=== PATIENT | female | born 1990 | race Caucasian/White ===

== ENCOUNTER 2023-04-07 15:22 | Outpatient (RCR) | payer OTHER, SELFPAY ==
[2023-04-07 15:56] VITALS: BP 121/75; PULSE 92; RESP 18; TEMP 36.9; O2SAT 97
[2023-04-07] MEDS: RHO(D) IMMUNE GLOBULIN 1,500 UNIT SYRINGE 1500 UNIT IM (16:05)
--- NOTE | 2023-04-07 16:17 | PC.NURSE ---
1556: Pt. to [facility] amb per self. Seated in recliner. VSS. Denies questions regarding Rhophylac injection. Denies allergies. Pt. medicated with Rhophylac 1500IU IM to right dorsal gluteal. No bleeding to site. Bandaid placed prophylactically. Pt. tolerated with minimal c/o pain. Given water. Instructed need brief observation for s&s of adverse reaction. Pt. relays understanding. 1620: Pt. without changes. D/c'd amb. to home
== END 2023-04-10 23:59 | disposition home or self-care (01) ==
LOC: INF 15:22
PROVIDERS: Visit Provider Obstetrics & Gynecology
DX: O26.893 Other specified pregnancy related conditions, third trimester (principal); Z67.91 Unspecified blood type, Rh negative
CPT/HCPCS: 36415; 86850; 86900; 86901; 96372; J2790

== ENCOUNTER 2023-05-27 13:26 | Outpatient (OUT) | payer OTHER, SELFPAY ==
--- NOTE | 2023-05-27 13:29 | US_ITS ---
[address] [address] Patient Name: EVELIO TATE MRN: [id number] date: 1990 Sex: F Assigned Patient Location: US Current Patient Location: LAB Accession/Order Number: [id number] Exam Date: 05/27/2023 13:30 Report Date: 05/27/2023 21:51 At the request of: ALICIA UP Procedure: US OB growth EXAMINATION: US OB growth HISTORY: SIZE INCONSISTENT WITH DATES COMPARISON: No relevant comparison available. FINDINGS: #: 1.0 Presentation: CEPHALIC Heart Rate: 139.0 bpm Amniotic Fluid Volume: ; 10.3 cm Maximum Vertical Pocket: 2.6 cm cm 0.0 cm cm 3.7 cm cm 4.1 cm cm BIOMETRY: BPD: 8.8 cm cm; 35 weeks 3 days, 46% HC: 32.2 cm cm; 36 weeks 3 days, 32% AC: 31.7 cm cm; 35 weeks 4 days, 52% FL: 7.0 cm cm; 36 weeks 0 days, 49% EFW: 2766 g, 6 lbs. 2 oz., 48% FL/AC: 22.2 FL/BPD: 80.0 HC/AC: 1.0 GESTATIONAL AGE: BERNIE by EDC: 35 weeks 6 days Age by EDC: 06/25/2023 Ultrasound Age: 35 weeks 6 days BERNIE by US: 06/25/2023 US/US OB growth IMPRESSION: Normal interval growth Electronically authenticated by: JONY KIDD Date: 05/27/2023 21:51
== END 2023-05-27 13:27 | disposition home or self-care (01) ==
PROVIDERS: Visit Provider Physician Assistant
DX: Z34.93 Encounter for supervision of normal pregnancy, unspecified, third trimester (principal); O26.843 Uterine size-date discrepancy, third trimester; Z3A.35 35 weeks gestation of pregnancy
CPT/HCPCS: 76816; 87081

== ENCOUNTER 2023-05-27 20:03 | Outpatient (REF) | payer OTHER, SELFPAY | END 2023-05-27 20:04 | disposition home or self-care (01) | LOC: LAB 20:03 | PROVIDERS: Visit Provider Obstetrics & Gynecology | DX: Z34.93 Encounter for supervision of normal pregnancy, unspecified, third trimester (principal) | CPT/HCPCS: 87081 ==

== ENCOUNTER 2023-06-11 11:29 | Inpatient (IN) | payer OTHER, SELFPAY ==
[2023-06-11] VITALS (15 sets, daily range): BP systolic 113–141; BP diastolic 58–78; PULSE 66–100; RESP 16; TEMP 36.2–36.9
[2023-06-11] MEDS: 0.9 % SODIUM CHLORIDE 1,000 ML 1000 ML IV (13:21)
[2023-06-11 13:23] LABS: Hematocrit 35.9 % (36.0-48.0); Mean Corpuscular HGB Conc 33.4 g/dL (29.9-35.2); Mean Corpuscular Hemoglobin 30.1 pg (26.7-34.0); Mean Platelet Volume 9.4 fL (9.5-13.5); Platelet Count 235 10^3/uL (150-450); Red Blood Count 3.99 10^6/uL (4.20-5.40); Red Cell Distribution Width 13.2 % (11.0-15.0)
[2023-06-11] MEDS: AMPICILLIN SODIUM 2,000 MG in 0.9 % SODIUM CHLORIDE 100 ML 200 MG IV (13:24)
--- NOTE | 2023-06-11 14:02 | PM.OBPRCVD ---
Procedure Intrapartal events: None Induction method: none Delivery augmentation: rupture of membranes Delivery monitor: external FHT and external uterine Route of delivery: Episiotomy Description: none Laceration description: perineal - 2nd degree Delivery repair: Vicryl Estimated blood loss (mL): 250 Anesthesia type: None Disposition: floor Infant Delivery date: 06/11/23 Gender: female presentation: vertex Placental delivery description: Spontaneous cord description: 3 Vessels
[2023-06-11 14:07] LABS: Amphetamine Screen Urine NEGATIVE (NEGATIVE); Barbiturates Screen Urine NEGATIVE (NEGATIVE); Benzodiazepines Screen Urine NEGATIVE (NEGATIVE); Buprenorphine Screen Urine NEGATIVE (NEGATIVE); Cannabinoid Screen Urine NEGATIVE (NEGATIVE); Cocaine Screen Urine NEGATIVE (NEGATIVE); Methadone Screen Urine NEGATIVE (NEGATIVE); Methamphetamines Screen Urine NEGATIVE (NEGATIVE); Opiate Screen Urine NEGATIVE (NEGATIVE); Oxycodone Screen Urine NEGATIVE (NEGATIVE); Phencyclidine Screen Urine NEGATIVE (NEGATIVE); Tricyclic Antidepressant Urine NEGATIVE (NEGATIVE)
[2023-06-11] MEDS: LIDOCAINE HCL 1% 200 MG/20 ML MDV INJ (14:10)
[2023-06-11] MEDS: KETOROLAC TROMETHAMINE 30 MG/ML VIAL IVP (14:15)
[2023-06-11] MEDS: GLYCERIN/WITCH HAZEL PADS 1 PAD TOPICAL (16:22)
[2023-06-11] MEDS: BENZOCAINE/MENTHOL 85 GRAM SPRAY BOTTLE 1 APPLIC TOPICAL (16:23)
--- NOTE | 2023-06-11 19:03 | W.PC.ACHO ---
Registration Status: ADM IN Primary Language: Equ[place]inean Preferred Language: [place] Active Medications Generic Name Dose Route Start Last Admin Trade Name Thierno PRN Reason Stop Dose Admin Acetaminophen 650 mg 06/11/23 13:59 Acetaminophen 325 Mg Tablet PO Q6H PRN Mild Pain Al Hydroxide/Mg Hydroxide 2,400 mg 06/11/23 13:59 Magnesium Hydroxide 2,400 Mg/10 Ml Oral.Susp PO Q6H PRN Dyspepsia Benzocaine/Menthol 1 applic 06/11/23 13:59 06/11/23 16:23 Benzocaine/Menthol 85 Gram [place] Bottle TOPICAL 1 applic Q2H PRN Administration Pain Carboprost Tromethamine 250 mcg 06/11/23 12:53 Carboprost Tromethamine 250 Mcg/Ml 1 Ml Vial IM 06/13/23 12:54 Q15M PRN Bleeding Diphtheria/Pertussis/Tetanus Vacc 0.5 ml 06/13/23 09:00 Adacel Diph,Pertuss(Acell),Tet Vac/Pf 0.5 Ml Adult Syringe IM 06/13/23 09:01 .ONCE ONE Docusate Sodium 100 mg 06/12/23 09:00 Docusate Sodium 100 Mg Capsule PO BID RAMAN Ephedrine Sulfate 5 mg 06/11/23 13:01 Ephedrine Sulfate 50 Mg/Ml Vial IV 06/12/23 13:04 Q5M PRN Blood Pressure - Low Fentanyl Citrate 100 mcg 06/11/23 13:01 Fentanyl Citrate/Pf 100 Mcg/2 Ml Vial EPIDURAL 06/12/23 13:04 Q4H PRN Pain Sodium Chloride 1,000 mls @ 125 mls/hr 06/11/23 13:00 Sodium Chloride 0.9% 1,000 Ml IV .Q8H RAMAN Oxytocin/Sodium Chloride 20 units in 1,000 mls @ 125 mls/hr 06/12/23 12:57 Pitocin 20 Unit/1,000 Ml-Ns IV 06/12/23 20:56 ONCE ONE Protocol Ampicillin 1,000 mg/ Sodium 50 mls @ 100 mls/hr 06/11/23 17:00 Chloride IV Q4H RAMAN Ropivacaine/Sodium Chloride 400 mg in 200 mls @ 6 mls/hr 06/11/23 14:00 Naropin 0.2% 400 Mg/200 Ml Bag EPIDURAL 06/12/23 14:01 Q24H RAMAN Oxytocin 20 unit/ Sodium 1,002 mls @ 125 mls/hr 06/11/23 14:00 06/11/23 14:17 Chloride IV 06/11/23 21:59 1,000 mls/hr Q8H RAMAN 1,000 mls/hr Administration Ibuprofen 600 mg 06/11/23 13:59 Ibuprofen 600 Mg Tablet PO Q6H PRN Moderate Pain Lidocaine 5 ml 06/11/23 12:53 Lidocaine Viscous 2% 15 Ml Topical Solution TOPICAL ONCE PRN Pain Lidocaine 1 ml 06/11/23 12:53 06/11/23 14:10 Lidocaine Hcl 1% 200 Mg/20 Ml Mdv INJ 1 ml ONCE PRN Administration Pain Measles/Mumps/Rubella Vaccine Live 0.5 ml 06/13/23 09:00 Measles,Mumps,Rubella Vacc/Pf 0.5 Ml Vial SQ 06/13/23 09:01 .ONCE ONE Methylergonovine Maleate 0.2 mg 06/11/23 12:53 Methylergonovine Maleate 0.2 Mg/Ml Ampule IM 06/13/23 12:54 ONCE PRN Uterine Contractility/Contract Methylergonovine Maleate 0.2 mg 06/11/23 12:53 Methylergonovine Maleate 0.2 Mg Tablet PO 06/13/23 12:54 Q4H PRN Uterine Contractility/Contract Misoprostol 600 mcg 06/11/23 12:53 Misoprostol 100 Mcg Tablet PO 06/13/23 12:54 ONCE PRN Uterine Bleeding Misoprostol 800 mcg 06/11/23 12:53 Misoprostol 100 Mcg Tablet SL 06/13/23 12:54 ONCE PRN Uterine Bleeding Misoprostol 1,000 mcg 06/11/23 12:53 Misoprostol 100 Mcg Tablet [place] 06/13/23 12:54 ONCE PRN Uterine Bleeding Naloxone HCl 0.4 mg 06/11/23 13:01 Naloxone Hcl 0.4 Mg/Ml Vial IV 06/12/23 13:04 ONCE PRN Allergic Reaction Ondansetron HCl 4 mg 06/11/23 12:53 Ondansetron Pf 4 Mg/2 Ml Vial IV Q6H PRN Nausea And Vomiting Ondansetron HCl 4 mg 06/11/23 12:53 Ondansetron 4 Mg Rapdis Tablet SL Q6H PRN Nausea And Vomiting Senna 17.2 mg 06/11/23 20:00 Sennosides 8.6 Mg Tablet PO QHS PRN Constipation Simethicone 80 mg 06/11/23 13:59 Simethicone 80 Mg Tab.Chew PO QID PRN Abdominal Distention Temazepam 15 mg 06/11/23 20:00 Temazepam 15 Mg Capsule PO QHS PRN Sleep Witch Danii/Glycerin 1 pad 06/11/23 13:59 06/11/23 16:22 Glycerin/Witch Danii Pads TOPICAL 1 pad Q2H PRN Administration Pain Diet Category Date Time Status Regular Consistency Diet Diet 06/11/23 Dinner Active IV Insertion/Site Date of IV Line Insertion [ 06/11/23 left Hand] IV Insertion Time [left Hand] 13:15 Neurology Patient orientation (short person,place,time,situation list) Respiratory Lung sounds [Bilateral clear Throughout] Oxygen Delivery Method Room Air Oxygen Delivery Method Room Air Oxygen Delivery Method Room Air Bowels Bowel Pattern No Bowel Movement Renal Bladder Pattern Continent
[2023-06-11] MEDS: IBUPROFEN 600 MG TABLET PO (20:22)
[2023-06-12] MEDS: IBUPROFEN 600 MG TABLET PO ×4 (02:27→23:52)
[2023-06-12 06:12] LABS: Basophils Percent Auto 0.3 % (0.2-2.0); Eosinophils Absolute Auto 0.1 10^3/uL (0.0-0.7); Eosinophils Percent Auto 0.8 % (0.9-7.0); Hematocrit 33.6 % (36.0-48.0); Hemoglobin 11.1 g/dL (12.0-16.0); Immature Granulocytes Abs Auto 0.09 10^3/uL (0.00-0.03); Immature Granulocytes Pct Auto 0.8 % (0.0-0.5); Lymphocytes Absolute Auto 2.4 10^3/uL (1.2-3.8); Mean Corpuscular Hemoglobin 30.1 pg (26.7-34.0); Mean Corpuscular Volume 91.1 fL (81.0-99.0); Mean Platelet Volume 9.1 fL (9.5-13.5); Monocytes Absolute Auto 0.7 10^3/uL (0.3-0.8); Monocytes Percent Auto 6.4 % (1.7-12.0); Neutrophils Absolute Auto 7.5 10^3/uL (1.4-6.5); Neutrophils Percent Auto 69.7 % (43.0-75.0); Platelet Count 210 10^3/uL (150-450); Red Blood Count 3.69 10^6/uL (4.20-5.40); Red Cell Distribution Width 13.5 % (11.0-15.0); White Blood Count 10.8 10^3/uL (4.0-11.0)
--- NOTE | 2023-06-12 07:08 | W.PC.ACHO ---
Registration Status: ADM IN Primary Language: Turkmen Preferred Language: Turkmen Active Medications Generic Name Dose Route Start Last Admin Trade Name Thierno PRN Reason Stop Dose Admin Acetaminophen 650 mg 06/11/23 13:59 Acetaminophen 325 Mg Tablet PO Q6H PRN Mild Pain Al Hydroxide/Mg Hydroxide 2,400 mg 06/11/23 13:59 Magnesium Hydroxide 2,400 Mg/10 Ml Oral.Susp PO Q6H PRN Dyspepsia Benzocaine/Menthol 1 applic 06/11/23 13:59 06/11/23 16:23 Benzocaine/Menthol 85 Gram [place] Bottle TOPICAL 1 applic Q2H PRN Administration Pain Carboprost Tromethamine 250 mcg 06/11/23 12:53 Carboprost Tromethamine 250 Mcg/Ml 1 Ml Vial IM 06/13/23 12:54 Q15M PRN Bleeding Diphtheria/Pertussis/Tetanus Vacc 0.5 ml 06/13/23 09:00 Adacel Diph,Pertuss(Acell),Tet Vac/Pf 0.5 Ml Adult Syringe IM 06/13/23 09:01 .ONCE ONE Docusate Sodium 100 mg 06/12/23 09:00 Docusate Sodium 100 Mg Capsule PO BID RAMAN Ephedrine Sulfate 5 mg 06/11/23 13:01 Ephedrine Sulfate 50 Mg/Ml Vial IV 06/12/23 13:04 Q5M PRN Blood Pressure - Low Fentanyl Citrate 100 mcg 06/11/23 13:01 Fentanyl Citrate/Pf 100 Mcg/2 Ml Vial EPIDURAL 06/12/23 13:04 Q4H PRN Pain Sodium Chloride 1,000 mls @ 125 mls/hr 06/11/23 13:00 Sodium Chloride 0.9% 1,000 Ml IV .Q8H RAMAN Oxytocin/Sodium Chloride 20 units in 1,000 mls @ 125 mls/hr 06/12/23 12:57 Pitocin 20 Unit/1,000 Ml-Ns IV 06/12/23 20:56 ONCE ONE Protocol Ampicillin 1,000 mg/ Sodium 50 mls @ 100 mls/hr 06/11/23 17:00 Chloride IV Q4H RAMAN Ropivacaine/Sodium Chloride 400 mg in 200 mls @ 6 mls/hr 06/11/23 14:00 Naropin 0.2% 400 Mg/200 Ml Bag EPIDURAL 06/12/23 14:01 Q24H RAMAN Ibuprofen 600 mg 06/11/23 13:59 06/12/23 02:27 Ibuprofen 600 Mg Tablet PO 600 mg Q6H PRN Administration Moderate Pain Lidocaine 5 ml 06/11/23 12:53 Lidocaine Viscous 2% 15 Ml Topical Solution TOPICAL ONCE PRN Pain Lidocaine 1 ml 06/11/23 12:53 06/11/23 14:10 Lidocaine Hcl 1% 200 Mg/20 Ml Mdv INJ 1 ml ONCE PRN Administration Pain Measles/Mumps/Rubella Vaccine Live 0.5 ml 06/13/23 09:00 Measles,Mumps,Rubella Vacc/Pf 0.5 Ml Vial SQ 06/13/23 09:01 .ONCE ONE Methylergonovine Maleate 0.2 mg 06/11/23 12:53 Methylergonovine Maleate 0.2 Mg/Ml Ampule IM 06/13/23 12:54 ONCE PRN Uterine Contractility/Contract Methylergonovine Maleate 0.2 mg 06/11/23 12:53 Methylergonovine Maleate 0.2 Mg Tablet PO 06/13/23 12:54 Q4H PRN Uterine Contractility/Contract Misoprostol 600 mcg 06/11/23 12:53 Misoprostol 100 Mcg Tablet PO 06/13/23 12:54 ONCE PRN Uterine Bleeding Misoprostol 800 mcg 06/11/23 12:53 Misoprostol 100 Mcg Tablet SL 06/13/23 12:54 ONCE PRN Uterine Bleeding Misoprostol 1,000 mcg 06/11/23 12:53 Misoprostol 100 Mcg Tablet ID 06/13/23 12:54 ONCE PRN Uterine Bleeding Naloxone HCl 0.4 mg 06/11/23 13:01 Naloxone Hcl 0.4 Mg/Ml Vial IV 06/12/23 13:04 ONCE PRN Allergic Reaction Ondansetron HCl 4 mg 06/11/23 12:53 Ondansetron Pf 4 Mg/2 Ml Vial IV Q6H PRN Nausea And Vomiting Ondansetron HCl 4 mg 06/11/23 12:53 Ondansetron 4 Mg Rapdis Tablet SL Q6H PRN Nausea And Vomiting Senna 17.2 mg 06/11/23 20:00 Sennosides 8.6 Mg Tablet PO QHS PRN Constipation Simethicone 80 mg 06/11/23 13:59 Simethicone 80 Mg Tab.Chew PO QID PRN Abdominal Distention Temazepam 15 mg 06/11/23 20:00 Temazepam 15 Mg Capsule PO QHS PRN Sleep Witch Danii/Glycerin 1 pad 06/11/23 13:59 06/11/23 16:22 Glycerin/Witch Danii Pads TOPICAL 1 pad Q2H PRN Administration Pain Diet Category Date Time Status Regular Consistency Diet Diet 06/11/23 Dinner Active IV Insertion/Site Date of IV Line Insertion [ 06/11/23 left Hand] IV Insertion Time [left Hand] 13:15 Neurology Patient orientation (short person,place,time,situation list) Respiratory Lung sounds [Bilateral clear Throughout] Lung sounds [Bilateral clear Throughout] Oxygen Delivery Method Room Air Oxygen Delivery Method Room Air Oxygen Delivery Method Room Air Oxygen Delivery Method Room Air Bowels Bowel Pattern No Bowel Movement Renal Bladder Pattern Continent
--- NOTE | 2023-06-12 07:58 | PM.OBPN ---
OB - PN: Subj Subjective Patient comments: no complaints and pain well controlled status: doing well Exam Constitutional Vital Signs, click to edit/add: Last Vital Signs Temp 97.8 F 06/11/23 23:48 Pulse 66 06/11/23 23:48 Resp 16 06/11/23 15:46 BP 113/58 06/11/23 23:48 O2 Del Method Room Air 06/11/23 23:45 Documenting provider has reviewed patient's vital signs: yes Common normals: no apparent distress Respiratory Common normals: normal respiratory effort and clear to auscultation bilaterally Cardio Common normals: regular rate and regular rhythm GI Common normals: Normal to inspection, nondistended, normoactive bowel sounds present Extremity Common normals: no clubbing, cyanosis or edema and no calf tenderness Results Labs Labs: Short CBC 06/11/23 06/12/23 Range/Units 13:00 06:03 WBC 12.0 H 10.8 (4.0-11.0) 10^3/uL Hgb 12.0 11.1 L (12.0-16.0) g/dL Hct 35.9 L 33.6 L (36.0-48.0) % Plt Count 235 210 (150-450) 10^3/uL OB - PN: A/P Plan - Vaginal Delivery day: 1 Plan: routine care Time Spent with Patient Time: Total time spent is greater than 50% in coordination of care (as documented) at patient's floor/unit and/or counseling patient: Total time spent with greater than 50% in coordination of care (as documented) at patient's floor/unit and/or counseling patient: less than 15 minutes
[2023-06-12 08:26] VITALS: BP 119/69; PULSE 65
[2023-06-12 08:31] VITALS: BP 119/69; PULSE 65; RESP 16; TEMP 36.8
[2023-06-12] MEDS: DOCUSATE SODIUM 100 MG CAPSULE PO ×2 (10:21→20:41)
[2023-06-12] MEDS: RHO(D) IMMUNE GLOBULIN 1,500 UNIT SYRINGE 1500 UNIT IV (10:21)
--- NOTE | 2023-06-12 19:17 | W.PC.ACHO ---
Registration Status: ADM IN Primary Language: Panamanian Preferred Language: Panamanian Report received at 1900 from Lennox Glynn RN. Active Medications Generic Name Dose Route Start Last Admin Trade Name Freq PRN Reason Stop Dose Admin Acetaminophen 650 mg 06/11/23 13:59 Acetaminophen 325 Mg Tablet PO Q6H PRN Mild Pain Al Hydroxide/Mg Hydroxide 2,400 mg 06/11/23 13:59 Magnesium Hydroxide 2,400 Mg/10 Ml Oral.Susp PO Q6H PRN Dyspepsia Benzocaine/Menthol 1 applic 06/11/23 13:59 06/11/23 16:23 Benzocaine/Menthol 85 Gram [place] Bottle TOPICAL 1 applic Q2H PRN Administration Pain Carboprost Tromethamine 250 mcg 06/11/23 12:53 Carboprost Tromethamine 250 Mcg/Ml 1 Ml Vial IM 06/13/23 12:54 Q15M PRN Bleeding Diphtheria/Pertussis/Tetanus Vacc 0.5 ml 06/13/23 09:00 Adacel Diph,Pertuss(Acell),Tet Vac/Pf 0.5 Ml Adult Syringe IM 06/13/23 09:01 .ONCE ONE Docusate Sodium 100 mg 06/12/23 09:00 06/12/23 10:21 Docusate Sodium 100 Mg Capsule PO 100 mg BID RAMAN Administration Sodium Chloride 1,000 mls @ 125 mls/hr 06/11/23 13:00 Sodium Chloride 0.9% 1,000 Ml IV .Q8H RAMAN Oxytocin/Sodium Chloride 20 units in 1,000 mls @ 125 mls/hr 06/12/23 12:57 Pitocin 20 Unit/1,000 Ml-Ns IV 06/12/23 20:56 ONCE ONE Protocol Ampicillin 1,000 mg/ Sodium 50 mls @ 100 mls/hr 06/11/23 17:00 Chloride IV Q4H RAMAN Ibuprofen 600 mg 06/11/23 13:59 06/12/23 16:46 Ibuprofen 600 Mg Tablet PO 600 mg Q6H PRN Administration Moderate Pain Lidocaine 5 ml 06/11/23 12:53 Lidocaine Viscous 2% 15 Ml Topical Solution TOPICAL ONCE PRN Pain Lidocaine 1 ml 06/11/23 12:53 06/11/23 14:10 Lidocaine Hcl 1% 200 Mg/20 Ml Mdv INJ 1 ml ONCE PRN Administration Pain Measles/Mumps/Rubella Vaccine Live 0.5 ml 06/13/23 09:00 Measles,Mumps,Rubella Vacc/Pf 0.5 Ml Vial SQ 06/13/23 09:01 .ONCE ONE Methylergonovine Maleate 0.2 mg 06/11/23 12:53 Methylergonovine Maleate 0.2 Mg/Ml Ampule IM 06/13/23 12:54 ONCE PRN Uterine Contractility/Contract Methylergonovine Maleate 0.2 mg 06/11/23 12:53 Methylergonovine Maleate 0.2 Mg Tablet PO 06/13/23 12:54 Q4H PRN Uterine Contractility/Contract Misoprostol 600 mcg 06/11/23 12:53 Misoprostol 100 Mcg Tablet PO 06/13/23 12:54 ONCE PRN Uterine Bleeding Misoprostol 800 mcg 06/11/23 12:53 Misoprostol 100 Mcg Tablet SL 06/13/23 12:54 ONCE PRN Uterine Bleeding Misoprostol 1,000 mcg 06/11/23 12:53 Misoprostol 100 Mcg Tablet PA 06/13/23 12:54 ONCE PRN Uterine Bleeding Ondansetron HCl 4 mg 06/11/23 12:53 Ondansetron Pf 4 Mg/2 Ml Vial IV Q6H PRN Nausea And Vomiting Ondansetron HCl 4 mg 06/11/23 12:53 Ondansetron 4 Mg Rapdis Tablet SL Q6H PRN Nausea And Vomiting Senna 17.2 mg 06/11/23 20:00 Sennosides 8.6 Mg Tablet PO QHS PRN Constipation Simethicone 80 mg 06/11/23 13:59 Simethicone 80 Mg Tab.Chew PO QID PRN Abdominal Distention Temazepam 15 mg 06/11/23 20:00 Temazepam 15 Mg Capsule PO QHS PRN Sleep Witch Danii/Glycerin 1 pad 06/11/23 13:59 06/11/23 16:22 Glycerin/Witch Danii Pads TOPICAL 1 pad Q2H PRN Administration Pain Respiratory Lung sounds [Bilateral clear Throughout] Lung sounds [Bilateral clear Throughout] Oxygen Delivery Method Room Air
[2023-06-13] VITALS: RESP 16; TEMP 36.7
[2023-06-13 00:01] VITALS: BP 114/63; PULSE 66
--- NOTE | 2023-06-13 07:11 | W.PC.ACHO ---
Registration Status: ADM IN Primary Language: Vincentian Preferred Language: Vincentian Report given at 0500. Active Medications Generic Name Dose Route Start Last Admin Trade Name Freq PRN Reason Stop Dose Admin Acetaminophen 650 mg 06/11/23 13:59 Acetaminophen 325 Mg Tablet PO Q6H PRN Mild Pain Al Hydroxide/Mg Hydroxide 2,400 mg 06/11/23 13:59 Magnesium Hydroxide 2,400 Mg/10 Ml Oral.Susp PO Q6H PRN Dyspepsia Benzocaine/Menthol 1 applic 06/11/23 13:59 06/11/23 16:23 Benzocaine/Menthol 85 Gram [place] Bottle TOPICAL 1 applic Q2H PRN Administration Pain Carboprost Tromethamine 250 mcg 06/11/23 12:53 Carboprost Tromethamine 250 Mcg/Ml 1 Ml Vial IM 06/13/23 12:54 Q15M PRN Bleeding Diphtheria/Pertussis/Tetanus Vacc 0.5 ml 06/13/23 09:00 Adacel Diph,Pertuss(Acell),Tet Vac/Pf 0.5 Ml Adult Syringe IM 06/13/23 09:01 .ONCE ONE Docusate Sodium 100 mg 06/12/23 09:00 06/12/23 20:41 Docusate Sodium 100 Mg Capsule PO 100 mg BID RAMAN Administration Sodium Chloride 1,000 mls @ 125 mls/hr 06/11/23 13:00 Sodium Chloride 0.9% 1,000 Ml IV .Q8H RAMAN Ampicillin 1,000 mg/ Sodium 50 mls @ 100 mls/hr 06/11/23 17:00 Chloride IV Q4H RAMAN Ibuprofen 600 mg 06/11/23 13:59 06/12/23 23:52 Ibuprofen 600 Mg Tablet PO 600 mg Q6H PRN Administration Moderate Pain Lidocaine 5 ml 06/11/23 12:53 Lidocaine Viscous 2% 15 Ml Topical Solution TOPICAL ONCE PRN Pain Lidocaine 1 ml 06/11/23 12:53 06/11/23 14:10 Lidocaine Hcl 1% 200 Mg/20 Ml Mdv INJ 1 ml ONCE PRN Administration Pain Measles/Mumps/Rubella Vaccine Live 0.5 ml 06/13/23 09:00 Measles,Mumps,Rubella Vacc/Pf 0.5 Ml Vial SQ 06/13/23 09:01 .ONCE ONE Methylergonovine Maleate 0.2 mg 06/11/23 12:53 Methylergonovine Maleate 0.2 Mg/Ml Ampule IM 06/13/23 12:54 ONCE PRN Uterine Contractility/Contract Methylergonovine Maleate 0.2 mg 06/11/23 12:53 Methylergonovine Maleate 0.2 Mg Tablet PO 06/13/23 12:54 Q4H PRN Uterine Contractility/Contract Misoprostol 600 mcg 06/11/23 12:53 Misoprostol 100 Mcg Tablet PO 06/13/23 12:54 ONCE PRN Uterine Bleeding Misoprostol 800 mcg 06/11/23 12:53 Misoprostol 100 Mcg Tablet SL 06/13/23 12:54 ONCE PRN Uterine Bleeding Misoprostol 1,000 mcg 06/11/23 12:53 Misoprostol 100 Mcg Tablet [place] 06/13/23 12:54 ONCE PRN Uterine Bleeding Ondansetron HCl 4 mg 06/11/23 12:53 Ondansetron Pf 4 Mg/2 Ml Vial IV Q6H PRN Nausea And Vomiting Ondansetron HCl 4 mg 06/11/23 12:53 Ondansetron 4 Mg Rapdis Tablet SL Q6H PRN Nausea And Vomiting Senna 17.2 mg 06/11/23 20:00 Sennosides 8.6 Mg Tablet PO QHS PRN Constipation Simethicone 80 mg 06/11/23 13:59 Simethicone 80 Mg Tab.Chew PO QID PRN Abdominal Distention Temazepam 15 mg 06/11/23 20:00 Temazepam 15 Mg Capsule PO QHS PRN Sleep Witch Danii/Glycerin 1 pad 06/11/23 13:59 06/11/23 16:22 Glycerin/Witch Danii Pads TOPICAL 1 pad Q2H PRN Administration Pain Respiratory Lung sounds [Bilateral clear Throughout] Lung sounds [Bilateral clear Throughout] Oxygen Delivery Method Room Air Oxygen Delivery Method Room Air
[2023-06-13 08:45] VITALS: BP 113/68; PULSE 68
[2023-06-13] MEDS: IBUPROFEN 600 MG TABLET PO (09:03)
[2023-06-13] MEDS: DOCUSATE SODIUM 100 MG CAPSULE PO (09:03)
--- NOTE | 2023-06-13 09:11 | PM.OBPN ---
OB - PN: Subj Subjective Patient comments: no complaints and pain well controlled Exam Constitutional Vital Signs, click to edit/add: Last Vital Signs Temp 98.0 F 06/13/23 00:00 Pulse 68 06/13/23 08:45 Resp 16 06/13/23 00:00 BP 113/68 06/13/23 08:45 O2 Del Method Room Air 06/13/23 00:00 Documenting provider has reviewed patient's vital signs: yes Common normals: no apparent distress, oriented x3 and alert Neck & C-Spine Common normals: full ROM Lymph Lymphatic: no lymphadenopathy noted Chest Common normals: inspection of chest normal Respiratory Common normals: normal respiratory effort Cardio Common normals: regular rate, regular rhythm and no murmurs Rate: regular rate Rhythm: regular rhythm GI Common normals: Normal to inspection, nondistended, normoactive bowel sounds present and non-tender Common normals: no CVA tenderness Back & Pelvis Common normals: no CVA tenderness Extremity Common normals: normal to inspection and full ROM Neuro Common normals: oriented x3 Psych Attitude: calm OB - PN: A/P Plan - Plan: routine postop care Plan - Vaginal Delivery day: 2 Plan: discharge home and follow up 6 weeks Time Spent with Patient Time: Total time spent is greater than 50% in coordination of care (as documented) at patient's floor/unit and/or counseling patient: Total time spent with greater than 50% in coordination of care (as documented) at patient's floor/unit and/or counseling patient: less than 15 minutes
--- NOTE | 2023-06-13 09:15 | PC.NURSE ---
bilat breast with slight cracking noted. no bleeding, pt reports discomfort at times with latching. Discussed at length proper latch, much encouragement given. Infant latches well and proper position acheieved by pt.
== END 2023-06-13 13:16 | disposition home or self-care (01) | DRG 807 ==
PROVIDERS: Admitting Provider Obstetrics & Gynecology; Visit Provider Obstetrics & Gynecology
DX: O70.1 Second degree perineal laceration during delivery (principal); Z37.0 Single live birth; Z3A.38 38 weeks gestation of pregnancy
CPT/HCPCS: 36415; 80307; 85025; 85027; 85461; 86850; 86900; 86901; 96372; 96374; 96375; J2790

== ENCOUNTER 2023-06-17 09:06 | Outpatient (OUT) | payer OTHER, SELFPAY | END 2023-06-17 09:07 | disposition home or self-care (01) | PROVIDERS: Visit Provider Obstetrics & Gynecology | DX: Z39.2 Encounter for routine postpartum follow-up (principal) ==